=== PATIENT | male | born 1975 | race Caucasian/White ===

== ENCOUNTER 2017-08-24 12:00 | Inpatient (IN) | payer OTHER ==
[2017-08-24 14:39] VITALS: BMI 24.7
--- NOTE | 2017-08-24 18:21 | HP ---
CIWA Score - CIWA Score Nausea/Vomitin-Mild Nausea/No Vomiting Muscle Tremors: 5 Anxiety: 5 Agitation: 4-Moderately Restless Paroxysmal Sweats: 1-Minimal Palms Moist Orientation: 0-Oriented Tacttile Disturbances: 1-Very Mild Itch/Numbness Auditory Disturbances: 0-None Visual Disturbances: 0-None Headache: 2-Mild CIWA-Ar Total Score: 19 Admission ROS BHS - HPI Chief Complaint: withdrawal sx Allergies/Adverse Reactions: Allergies Allergy/AdvReac Type Severity Reaction Status Date / Time No Known Allergies Allergy Verified 08/24/17 17:02 History of Present Illness: 42 years old male with long history of xanax klonopin nicotine dependence has hiv hepatitis c and depression methadone maintenance 40 mg po daily is admitted to detox Exam Limitations: No Limitations - Ebola screening Have you traveled outside of the country in the last 21 days: No Have you had contact with anyone from an Ebola affected area: No Have you been sick,other than usual withdrawal symptoms: No Do you have a fever: No - Review of Systems Constitutional: Loss of Appetite, Changes in sleep, Unintentional Wgt. Loss, Unexplained wgt Loss EENT: reports: No Symptoms Reported Respiratory: reports: No Symptoms reported Cardiac: reports: No Symptoms Reported GI: reports: Nausea, Poor Appetite, Poor Fluid Intake, Abdominal cramping : reports: No Symptoms Reported Musculoskeletal: reports: Back Pain, Joint Pain, Muscle Pain, Neck Pain Integumentary: reports: Bruising (right rib = fell 08/21/17 treated at [facility] negative finding discharged same day), Lumps (right lateral eye brow) , Other Neuro: reports: Tremors Endocrine: reports: No Symptoms Reported Hematology: reports: No Symptoms Reported Psychiatric: reports: Judgement Intact, Orientated x3, Anxious, Depressed Other Systems: Reviewed and Negative Patient History - Patient Medical History Hx Anemia: No Hx Asthma: No Hx Chronic Obstructive Pulmonary Disease (COPD): No Hx Cancer: No Hx Cardiac Disorders: No Hx Congestive Heart Failure: No Hx Hypertension: No Hx Hypercholesterolemia: No Hx Pacemaker: No HX Cerebrovascular Accident: No Hx Seizures: No Hx Dementia: No Hx Diabetes: No Hx Gastrointestinal Disorders: No Hx Liver Disease: No Hx Genitourinary Disorders: No Hx Sexually Transmitted Disorders: No Hx Renal Disease (ESRD): No Hx Thyroid Disease: No Hx Human Immunodeficiency Virus (HIV): Yes (no treatment) Hx Hepatitis C: Yes (agrees to be treated) Hx Depression: Yes Hx Suicide Attempt: No Hx Bipolar Disorder: No Hx Schizophrenia: No - Patient Surgical History Past Surgical History: Yes Hx Neurologic Surgery: No Hx Cataract Extraction: No Hx Cardiac Surgery: No Hx Lung Surgery: No Hx Breast Surgery: No Hx Breast Biopsy: No Hx Abdominal Surgery: No Hx Appendectomy: No Hx Cholecystectomy: No Hx Genitourinary Surgery: No Hx Orthopedic Surgery: Yes (right 5th finger 1 years old) Anesthesia Reaction: No - PPD History Previous Implant?: Yes Documented Results: Negative w/o proof Implanted On Prior [facility] Admission?: No PPD to be Administered?: Yes - Smoking Cessation Smoking history: Current every day smoker Have you smoked in the past 12 months: Yes Aproximately how many cigarettes per day: 5 Cigars Per Day: 0 Hx Chewing Tobacco Use: No Initiated information on smoking cessation: Yes 'Breaking Loose' booklet given: 08/24/17 - Substance & Tx. History Hx Alcohol Use: No Hx Substance Use: Yes Substance Use Type: Marijuana, Tranquilizers Hx Substance Use Treatment: Yes (2012) - Substances Abused Alprazolam (Xanax) Route: Oral Frequency: Daily Amount used: 10mg Age of first use: 40 Date of Last Use: 08/23/17 Heroin Route: Inhalation Frequency: Daily Amount used: 10 bags Age of first use: 37 Date of Last Use: 08/23/17 Percocets Route: Oral Frequency: Daily Amount used: 10 mg Age of first use: 40 Date of Last Use: 08/23/17 Marijuana/Hashish Route: Smoking Frequency: 1-3 times last 30 days Amount used: joint Age of first use: 5 Date of Last Use: 08/23/17 Family Disease History - Family Disease History Family Disease History: [place]: Father (), Other: Father, Mother (no contact ) Admission Physical Exam BHS - Vital Signs Vital Signs: Vital Signs - 24 hr 08/24/17 14:35 Temperature 97.8 F Pulse Rate 59 L Respiratory 20 Rate Blood Pressure 114/66 - Physical General Appearance: Yes: Appropriately Dressed, Mild Distress, Thin, Tremorous, Irritable, Sweating, Anxious HEENTM: Yes: Hearing grossly Normal, Normal ENT Inspection, Normocephalic, Normal Voice Respiratory: Yes: Chest Non-Tender, Lungs Clear, Normal Breath Sounds, No Respiratory Distress, No Accessory Muscle Use Neck: Yes: Supple, Trachea in good position Breast: Yes: Breasts Symetrical Cardiology: Yes: Regular Rhythm, S1, S2, Bradycardia Abdominal: Yes: Normal Bowel Sounds, Non Tender, Soft Genitourinary: Yes: Within Normal Limits Back: Yes: Normal Inspection Musculoskeletal: Yes: full range of Motion, Gait Steady Extremities: Yes: Normal Inspection, Normal Range of Motion, Non-Tender, Tremors Neurological: Yes: Fully Oriented, Alert, Motor Strength 5/5, Normal Response, Depressed Affect Integumentary: Yes: Warm Lymphatic: Yes: Within Normal Limits - Diagnostic (1) Sedative, hypnotic or anxiolytic dependence with withdrawal, uncomplicated Current Visit: Yes Status: Acute (2) Methadone maintenance therapy patient Current Visit: Yes Status: Chronic Comment: 40 mg po daily verificaiton pending (3) Hepatitis C Current Visit: Yes Status: Chronic Qualifiers: Viral hepatitis chronicity: carrier Qualified Code(s): B18.2 - Chronic viral hepatitis C (4) HIV (human immunodeficiency virus infection) Current Visit: Yes Status: Chronic Comment: no treatment (5) Nicotine dependence Current Visit: Yes Status: Acute Qualifiers: Nicotine product type: cigarettes Substance use status: in withdrawal Qualified Code(s): F17.213 - Nicotine dependence, cigarettes, with withdrawal (6) Weight loss Current Visit: Yes Status: Acute (7) Status post fall Current Visit: Yes Status: Suspected Comment: sterile strip right lateral eyebrow fell 08/21/17 treated at [facility] negative finding discharged 08/21/17 with motrin and tylenal Cleared for Admission S - Detox or Rehab [facility] Level of Care: Medically Managed Detox Regimen/Protocol: Valium [facility] Breath Alcohol Content Breath Alcohol Content: 0 Urine Drug Screen - Results Drug Screen Negative: No Urine Drug Screen Results: THC-Marijuana, BZO-Benzodiazepines, MTD-Methadone
[2017-08-24] MEDS ORDERED: guaiFENesin/D-METHORPHAN HB 10 ML UNIT-DOSE CUPS PO PRN (18:30)
[2017-08-24] MEDS ORDERED: MAGNESIUM HYDROX 2400MG/30ML ORAL SUSPENSION 30 ML CUP PO PRN (18:30)
[2017-08-24] MEDS ORDERED: LOPERAMIDE HCL 2 MG CAPSULE PO PRN (18:30)
[2017-08-24] MEDS ORDERED: NICOTINE POLACRILEX 2 MG GUM BC PRN (18:30)
[2017-08-24] MEDS ORDERED: MENTHOL/PHENOL 1 EACH UD MM PRN (18:30)
[2017-08-24] MEDS ORDERED: P-EPHED 60MG/TRIPROLIDI 2.5MG TABLET PO PRN (18:30)
[2017-08-24] MEDS ORDERED: ACETAMINOPHEN 325 MG TABLET (FP) PO PRN (18:30)
[2017-08-24] MEDS ORDERED: MAGNESIUM CITRATE 300 ML BOTTLE PO PRN (18:30)
[2017-08-24] MEDS ORDERED: MAG HYDROX/AL HYDROX/SIMETH 30 ML UNIT-DOSE CUP PO PRN (18:30)
[2017-08-24] MEDS ORDERED: BACITRACIN 0.9 GM PACKET TP ONE (19:00)
[2017-08-24] MEDS ORDERED: diazePAM 5 MG TABLET PO ONE (19:00)
[2017-08-24] MEDS: IBUPROFEN 400 MG TABLET (FP) PO PRN (19:37)
[2017-08-24] MEDS: diazePAM 5 MG TABLET PO SCH (22:16)
[2017-08-24] MEDS: THIAMINE HCL 100 MG TABLET (FP) PO SCH (22:16)
[2017-08-24] MEDS ORDERED: hydrOXYzine PAMOATE 50 MG CAPSULE (FP) PO ONE (22:26)
[2017-08-24 23:46] LABS: URINE APPEARANCE CLEAR; URINE BILIRUBIN NEGATIVE (NEGATIVE); URINE BLOOD NEGATIVE (NEGATIVE); URINE COLOR YELLOW; URINE GLUCOSE (UA) NEGATIVE (NEGATIVE); URINE KETONE NEGATIVE (NEGATIVE); URINE LEUK ESTERASE NEGATIVE (NEGATIVE); URINE NITRITE NEGATIVE (NEGATIVE); URINE PROTEIN NEGATIVE (NEGATIVE); URINE UROBILINOGEN NEGATIVE mg/dL (0.2-1.0)
[2017-08-25] MEDS: diazePAM 5 MG TABLET PO SCH ×3 (05:28→22:23)
[2017-08-25 09:50] LABS: HEMATOCRIT 45.2 % (35.4-49); MCH 32.2 pg (25.7-33.7); MCHC 33.1 g/dl (32.0-35.9); MEAN CELL VOLUME 97.2 fl (80-96); MEAN PLT VOLUME 8.6 fl (7.5-11.1); PLATELET COUNT 111 K/MM3 (134-434); RBC 4.65 M/mm3 (4.00-5.60); RDW 12.9 % (11.9-15.9)
[2017-08-25 10:07] LABS: ANION GAP 6 (8-16); BILIRUBIN,TOTAL 0.3 mg/dL (0.2-1.0); BLOOD UREA NITROGEN 14 mg/dL (7-18); CALCIUM 7.9 mg/dL (8.5-10.1); CHLORIDE 106 mmol/L (98-107); CO2 29 mmol/L (21-32); CREATININE 0.7 mg/dL (0.7-1.3); GLUCOSE,RANDOM 91 mg/dL (74-106); POTASSIUM 3.9 mmol/L (3.5-5.1); SGOT/AST 33 U/L (15-37); SGPT/ALT 56 U/L (12-78); SODIUM 141 mmol/L (136-145); TOT PROT 5.9 g/dl (6.4-8.2)
[2017-08-25 10:08] LABS: ALK PHOS 78 U/L (45-117)
[2017-08-25] MEDS: PRENATAL VITAMINS W/ FOLIC ACID TABLET (FP) PO SCH (10:33)
[2017-08-25] MEDS: diazePAM 5 MG TABLET PO PRN ×2 (10:34→17:33)
[2017-08-25] MEDS: NICOTINE 14 MG/24 HOURS TOPICAL PATCH TD SCH (10:34)
[2017-08-25] MEDS ORDERED: METHADONE HCL 10 MG TABLET PO SCH (11:45)
--- NOTE | 2017-08-25 11:47 | PN ---
[facility] CIWA - CIWA Score Nausea/Vomitin-No Nausea/No Vomiting Muscle Tremors: 3 Anxiety: 4-Mod. Anxious/Guarded Agitation: 3 Paroxysmal Sweats: 3 Orientation: 0-Oriented Tacttile Disturbances: 2-Mild Itch/Numbness/Burn Auditory Disturbances: 0-None Visual Disturbances: 3-Moderate Sensitivity Headache: 0-None Present CIWA-Ar Total Score: 18 BHS Progress Note (SOAP) Subjective: Body Aches, Chills, Sweating, Interrupted Sleep, Diarrhea, Tremors. Objective: PT. A & O X 3, OBSERVED AMBULATING ON UNIT. NO ACUTE DISTRESS. 08/25/17 11:44 Vital Signs Temperature 97.0 F L 08/25/17 09:57 Pulse Rate 61 08/25/17 09:57 Respiratory Rate 18 08/25/17 09:57 Blood Pressure 101/66 08/25/17 09:57 O2 Sat by Pulse Oximetry (%) Laboratory Tests 08/24/17 08/25/17 08/25/17 23:30 07:00 07:00 WBC 6.0 RBC 4.65 Hgb 15.0 Hct 45.2 MCV 97.2 H MCH 32.2 MCHC 33.1 RDW 12.9 Plt Count 111 L MPV 8.6 Sodium 141 Potassium 3.9 Chloride 106 Carbon Dioxide 29 Anion Gap 6 L BUN 14 Creatinine 0.7 Creat Clearance w eGFR > 60 Random Glucose 91 Calcium 7.9 L Total Bilirubin 0.3 AST 33 ALT 56 Alkaline Phosphatase 78 Total Protein 5.9 L Albumin 3.0 L Urine Color Yellow Urine Appearance Clear Urine pH 7.0 Ur Specific [place] 1.010 Urine Protein Negative Urine Glucose (UA) Negative Urine Ketones Negative Urine Blood Negative Urine Nitrite Negative Urine Bilirubin Negative Urine Urobilinogen Negative Ur Leukocyte Esterase Negative RPR Titer 08/25/17 07:00 WBC RBC Hgb Hct MCV MCH MCHC RDW Plt Count MPV Sodium Potassium Chloride Carbon Dioxide Anion Gap BUN Creatinine Creat Clearance w eGFR Random Glucose Calcium Total Bilirubin AST ALT Alkaline Phosphatase Total Protein Albumin Urine Color Urine Appearance Urine pH Ur Specific [place] Urine Protein Urine Glucose (UA) Urine Ketones Urine Blood Urine Nitrite Urine Bilirubin Urine Urobilinogen Ur Leukocyte Esterase RPR Titer Nonreactive LABS NOTED. Assessment: 08/25/17 11:45 WITHDRAWAL SYMPTOMS. Plan: CONTINUE DETOX. PRN IMMODIUM FOR DIARRHEA. INCREASE DAILY PO FLUID INTAKE.
[2017-08-25] MEDS ORDERED: METHADONE HCL 10 MG TABLET ONE (12:36)
[2017-08-25] MEDS ORDERED: METHADONE HCL 40 MG DISPERSABLE TABLET ONE (12:37)
[2017-08-25] MEDS: METHADONE 40 MG, METHADONE 10 MG PO SCH (12:50)
[2017-08-25] MEDS: BACITRACIN 0.9 GM PACKET TP SCH ×2 (12:50→22:23)
--- NOTE | 2017-08-25 15:16 | EKG ---
Test Reason : Blood Pressure : / mmHG Vent. Rate : 055 BPM Atrial Rate : 055 BPM P-R Int : 160 ms QRS Dur : 088 ms QT Int : 452 ms P-R-T Axes : 046 002 012 degrees QTc Int : 432 ms SINUS BRADYCARDIA OTHERWISE NORMAL ECG NO PREVIOUS ECGS AVAILABLE Confirmed by MD KATERIN, MALIK ([id number]) on 08/25/2017 3:15:56 PM Referred By: Confirmed By:MALIK CONKLIN MD
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
[2017-08-25] MEDS ORDERED: hydrOXYzine PAMOATE 50 MG CAPSULE (FP) PO PRN (16:07)
[2017-08-25] MEDS: THIAMINE HCL 100 MG TABLET (FP) PO SCH (22:23)
[2017-08-25] MEDS: ZOLPIDEM TARTRATE 10 MG TABLET (PARK CARE ONLY) PO PRN (22:23)
[2017-08-26] MEDS ORDERED: METHADONE HCL 10 MG TABLET ONE (04:03)
[2017-08-26] MEDS ORDERED: METHADONE HCL 40 MG DISPERSABLE TABLET ONE (04:03)
[2017-08-26] MEDS: METHADONE 40 MG, METHADONE 10 MG PO SCH (05:25)
[2017-08-26] MEDS: NICOTINE 14 MG/24 HOURS TOPICAL PATCH TD SCH (10:26)
[2017-08-26] MEDS: diazePAM 5 MG TABLET PO SCH ×2 (10:26→22:40)
[2017-08-26] MEDS: BACITRACIN 0.9 GM PACKET TP SCH ×2 (10:26→22:38)
[2017-08-26] MEDS: PRENATAL VITAMINS W/ FOLIC ACID TABLET (FP) PO SCH (10:26)
[2017-08-26] MEDS: TOLNAFTATE 1% CREAM 15 GM TUBE TP SCH ×2 (13:40→22:38)
--- NOTE | 2017-08-26 17:03 | PN ---
S CIWA - CIWA Score Nausea/Vomitin-No Nausea/No Vomiting Muscle Tremors: 3 Anxiety: 4-Mod. Anxious/Guarded Agitation: 3 Paroxysmal Sweats: 3 Orientation: 0-Oriented Tacttile Disturbances: 0-None Auditory Disturbances: 1-Very Mild Visual Disturbances: 2-Mild Sensitivity Headache: 0-None Present CIWA-Ar Total Score: 16 BHS Progress Note (SOAP) Subjective: Sweating, Tremors, Anxious. Objective: PT. A & O X 3, OBSERVED AMBULATING ON UNIT. NO ACUTE DISTRESS. 08/26/17 17:02 Vital Signs Temperature 97.5 F L 08/26/17 13:20 Pulse Rate 56 L 08/26/17 13:20 Respiratory Rate 18 08/26/17 13:20 Blood Pressure 104/69 08/26/17 13:20 O2 Sat by Pulse Oximetry (%) Laboratory Tests 08/24/17 08/25/17 08/25/17 23:30 07:00 07:00 WBC 6.0 RBC 4.65 Hgb 15.0 Hct 45.2 MCV 97.2 H MCH 32.2 MCHC 33.1 RDW 12.9 Plt Count 111 L MPV 8.6 Sodium 141 Potassium 3.9 Chloride 106 Carbon Dioxide 29 Anion Gap 6 L BUN 14 Creatinine 0.7 Creat Clearance w eGFR > 60 Random Glucose 91 Calcium 7.9 L Total Bilirubin 0.3 AST 33 ALT 56 Alkaline Phosphatase 78 Total Protein 5.9 L Albumin 3.0 L Urine Color Yellow Urine Appearance Clear Urine pH 7.0 Ur Specific [place] 1.010 Urine Protein Negative Urine Glucose (UA) Negative Urine Ketones Negative Urine Blood Negative Urine Nitrite Negative Urine Bilirubin Negative Urine Urobilinogen Negative Ur Leukocyte Esterase Negative RPR Titer 08/25/17 07:00 WBC RBC Hgb Hct MCV MCH MCHC RDW Plt Count MPV Sodium Potassium Chloride Carbon Dioxide Anion Gap BUN Creatinine Creat Clearance w eGFR Random Glucose Calcium Total Bilirubin AST ALT Alkaline Phosphatase Total Protein Albumin Urine Color Urine Appearance Urine pH Ur Specific [place] Urine Protein Urine Glucose (UA) Urine Ketones Urine Blood Urine Nitrite Urine Bilirubin Urine Urobilinogen Ur Leukocyte Esterase RPR Titer Nonreactive LABS NOTED. Assessment: 08/26/17 17:02 WITHDRAWAL SYMPTOMS. Plan: CONTINUE DETOX.
[2017-08-26] MEDS: THIAMINE HCL 100 MG TABLET (FP) PO SCH (22:38)
[2017-08-26] MEDS: ZOLPIDEM TARTRATE 10 MG TABLET (PARK CARE ONLY) PO PRN (22:38)
[2017-08-27] MEDS ORDERED: METHADONE HCL 40 MG DISPERSABLE TABLET ONE (04:40)
[2017-08-27] MEDS ORDERED: METHADONE HCL 10 MG TABLET ONE (04:40)
[2017-08-27] MEDS: METHADONE 40 MG, METHADONE 10 MG PO SCH (05:46)
[2017-08-27] MEDS: diazePAM 5 MG TABLET PO PRN (05:46)
[2017-08-27] MEDS: PRENATAL VITAMINS W/ FOLIC ACID TABLET (FP) PO SCH (10:13)
[2017-08-27] MEDS: diazePAM 5 MG TABLET PO SCH ×2 (10:13→22:31)
[2017-08-27] MEDS: BACITRACIN 0.9 GM PACKET TP SCH ×2 (10:13→22:31)
[2017-08-27] MEDS: NICOTINE 14 MG/24 HOURS TOPICAL PATCH TD SCH (10:13)
[2017-08-27] MEDS: TOLNAFTATE 1% CREAM 15 GM TUBE TP SCH ×2 (10:15→22:33)
[2017-08-27] MEDS ORDERED: ALBUTEROL SO4 0.083% IH SOL 2.5 MG/3 ML VIAL.NEB. NEB PRN (10:55)
--- NOTE | 2017-08-27 16:40 | PN ---
BHS Progress Note (SOAP) Subjective: Interrupted sleep, chills, tremor, back pain Objective: 08/27/17 16:40 Last Vital Signs Temp Pulse Resp BP Pulse Ox 98.1 F 68 18 105/66 08/27/17 13:29 08/27/17 13:29 08/27/17 13:29 08/27/17 13:29 Laboratory Tests 08/24/17 08/25/17 08/25/17 23:30 07:00 07:00 WBC 6.0 RBC 4.65 Hgb 15.0 Hct 45.2 MCV 97.2 H MCH 32.2 MCHC 33.1 RDW 12.9 Plt Count 111 L MPV 8.6 Sodium 141 Potassium 3.9 Chloride 106 Carbon Dioxide 29 Anion Gap 6 L BUN 14 Creatinine 0.7 Creat Clearance w eGFR > 60 Random Glucose 91 Calcium 7.9 L Total Bilirubin 0.3 AST 33 ALT 56 Alkaline Phosphatase 78 Total Protein 5.9 L Albumin 3.0 L Urine Color Yellow Urine Appearance Clear Urine pH 7.0 Ur Specific [place] 1.010 Urine Protein Negative Urine Glucose (UA) Negative Urine Ketones Negative Urine Blood Negative Urine Nitrite Negative Urine Bilirubin Negative Urine Urobilinogen Negative Ur Leukocyte Esterase Negative RPR Titer 08/25/17 07:00 WBC RBC Hgb Hct MCV MCH MCHC RDW Plt Count MPV Sodium Potassium Chloride Carbon Dioxide Anion Gap BUN Creatinine Creat Clearance w eGFR Random Glucose Calcium Total Bilirubin AST ALT Alkaline Phosphatase Total Protein Albumin Urine Color Urine Appearance Urine pH Ur Specific [place] Urine Protein Urine Glucose (UA) Urine Ketones Urine Blood Urine Nitrite Urine Bilirubin Urine Urobilinogen Ur Leukocyte Esterase RPR Titer Nonreactive Labs noted Assessment: 08/27/17 16:40 Withdrawal symptoms Plan: Continue detox
[2017-08-27] MEDS: IBUPROFEN 400 MG TABLET (FP) PO PRN (19:58)
[2017-08-27] MEDS: THIAMINE HCL 100 MG TABLET (FP) PO SCH (22:31)
[2017-08-27] MEDS: ZOLPIDEM TARTRATE 10 MG TABLET (PARK CARE ONLY) PO PRN (22:33)
[2017-08-28] MEDS ORDERED: METHADONE HCL 10 MG TABLET ONE (03:39)
[2017-08-28] MEDS ORDERED: METHADONE HCL 40 MG DISPERSABLE TABLET ONE (03:39)
[2017-08-28] MEDS: METHADONE 40 MG, METHADONE 10 MG PO SCH (05:57)
[2017-08-28 09:48] VITALS: BP 94/71; PULSE 58; TEMP 98.8
[2017-08-28] MEDS ORDERED: diazePAM 5 MG TABLET PO SCH (10:00)
[2017-08-28] MEDS: TOLNAFTATE 1% CREAM 15 GM TUBE TP SCH (10:32)
[2017-08-28] MEDS: PRENATAL VITAMINS W/ FOLIC ACID TABLET (FP) PO SCH (10:32)
[2017-08-28] MEDS: NICOTINE 14 MG/24 HOURS TOPICAL PATCH TD SCH (10:32)
[2017-08-28] MEDS: BACITRACIN 0.9 GM PACKET TP SCH (10:32)
--- NOTE | 2017-08-28 12:13 | PN ---
BHS Progress Note (SOAP) Subjective: LAST VALIUM TODAY. ALERT O X 3. SLIGHT ANXIETY. Objective: 08/28/17 12:11 Vital Signs Temperature 98.8 F 08/28/17 09:47 Pulse Rate 58 L 08/28/17 09:47 Respiratory Rate 18 08/28/17 09:47 Blood Pressure 94/71 08/28/17 09:47 O2 Sat by Pulse Oximetry (%) Laboratory Tests 08/24/17 08/25/17 08/25/17 23:30 07:00 07:00 WBC 6.0 RBC 4.65 Hgb 15.0 Hct 45.2 MCV 97.2 H MCH 32.2 MCHC 33.1 RDW 12.9 Plt Count 111 L MPV 8.6 Sodium 141 Potassium 3.9 Chloride 106 Carbon Dioxide 29 Anion Gap 6 L BUN 14 Creatinine 0.7 Creat Clearance w eGFR > 60 Random Glucose 91 Calcium 7.9 L Total Bilirubin 0.3 AST 33 ALT 56 Alkaline Phosphatase 78 Total Protein 5.9 L Albumin 3.0 L Urine Color Yellow Urine Appearance Clear Urine pH 7.0 Ur Specific [place] 1.010 Urine Protein Negative Urine Glucose (UA) Negative Urine Ketones Negative Urine Blood Negative Urine Nitrite Negative Urine Bilirubin Negative Urine Urobilinogen Negative Ur Leukocyte Esterase Negative RPR Titer 08/25/17 07:00 WBC RBC Hgb Hct MCV MCH MCHC RDW Plt Count MPV Sodium Potassium Chloride Carbon Dioxide Anion Gap BUN Creatinine Creat Clearance w eGFR Random Glucose Calcium Total Bilirubin AST ALT Alkaline Phosphatase Total Protein Albumin Urine Color Urine Appearance Urine pH Ur Specific [place] Urine Protein Urine Glucose (UA) Urine Ketones Urine Blood Urine Nitrite Urine Bilirubin Urine Urobilinogen Ur Leukocyte Esterase RPR Titer Nonreactive Assessment: 08/28/17 12:12 WITHDRAWAL SX Plan: CONTINUE DETOX INCREASE PO FLUIDS.
== END 2017-08-28 13:40 | disposition other institution (70) | DRG 773 ==
LOC: YASAS 12:00 → Y3N 17:41
PROVIDERS: ADMIT Internal Medicine; ATTEND Internal Medicine
PROC: HZ2ZZZZ Detoxification Services for Substance Abuse Treatment (ICD-10-PCS; principal; 2017-08-24)
DX: F13.230 Sedative, hypnotic or anxiolytic dependence with withdrawal, uncomplicated (principal); F11.20 Opioid dependence, uncomplicated; F12.20 Cannabis dependence, uncomplicated; F17.213 Nicotine dependence, cigarettes, with withdrawal; Z21 Asymptomatic human immunodeficiency virus [HIV] infection status; B18.2 Chronic viral hepatitis C; G47.00 Insomnia, unspecified; Z87.898 Personal history of other specified conditions
CPT/HCPCS: 36415; 80053; 81003; 85027; 86593; 93005; 93010

== ENCOUNTER 2017-08-28 14:20 | Inpatient (IN) | payer OTHER ==
[2017-08-28 15:15] VITALS: BMI 26.3
[2017-08-28] MEDS ORDERED: MAGNESIUM CITRATE 300 ML BOTTLE PO PRN (15:48)
[2017-08-28] MEDS ORDERED: MAGNESIUM HYDROX 2400MG/30ML ORAL SUSPENSION 30 ML CUP PO PRN (15:48)
[2017-08-28] MEDS ORDERED: P-EPHED 60MG/TRIPROLIDI 2.5MG TABLET PO PRN (15:48)
[2017-08-28] MEDS ORDERED: guaiFENesin/D-METHORPHAN HB 10 ML UNIT-DOSE CUPS PO PRN (15:48)
[2017-08-28] MEDS ORDERED: IBUPROFEN 400 MG TABLET (FP) PO PRN (15:48)
[2017-08-28] MEDS ORDERED: MAG HYDROX/AL HYDROX/SIMETH 30 ML UNIT-DOSE CUP PO PRN (15:48)
--- NOTE | 2017-08-28 16:25 | HP ---
[facility] Rehab Assess/Revision - Admission History Admitted to Rehab from: [facility] Date of Admission to Rehab: 08/28/17 - Vital signs Vital Signs: Vital Signs Period Temp Pulse Resp BP Sys/Arreola Pulse Ox Last 24 Hr 99.4 F 64 20 105/65 - Findings Detox History & Physical reviewed: Yes Concur with findings: Yes Comments/Additional Findings: transferred from detox to rehab admission as per protocol Inpatient Rehab Admission - Initial Determination Are CD services needed?: Yes Free of communicable disease: Yes Not in need of hospitalization: Yes - Rehab Admission Criteria Previous failed treatment: Yes Poor recovery environment: Yes Comorbidities: Yes Lacks judgement: No Patient is meeting Inpatient Rehab admission criteria:: Yes
[2017-08-28] MEDS ORDERED: ALBUTEROL SO4 18 GM HFA INHALER IH PRN (16:47)
[2017-08-28] MEDS: NICOTINE 14 MG/24 HOURS TOPICAL PATCH TD SCH (17:10)
[2017-08-28] MEDS: BACITRACIN 0.9 GM PACKET TP SCH (21:38)
[2017-08-28] MEDS: THIAMINE HCL 100 MG TABLET (FP) PO SCH (21:38)
[2017-08-28] MEDS: hydrOXYzine PAMOATE 50 MG CAPSULE (FP) PO PRN (21:39)
[2017-08-29] MEDS ORDERED: METHADONE HCL 10 MG TABLET ONE (04:18)
[2017-08-29] MEDS ORDERED: METHADONE HCL 40 MG DISPERSABLE TABLET ONE (04:18)
[2017-08-29] MEDS ORDERED: METHADONE HCL 10 MG TABLET PO SCH (06:00)
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
[2017-08-29] MEDS: METHADONE 40 MG, METHADONE 10 MG PO SCH (06:27)
[2017-08-29] MEDS ORDERED: BACITRACIN 15 GM TUBE TOPICAL OINTMENT TP SCH (10:00)
[2017-08-29] MEDS: PRENATAL VITAMINS W/ FOLIC ACID TABLET (FP) PO SCH (10:23)
[2017-08-29] MEDS: NICOTINE 14 MG/24 HOURS TOPICAL PATCH TD SCH (10:24)
[2017-08-29] MEDS: BACITRACIN 0.9 GM PACKET TP SCH ×2 (10:24→21:21)
[2017-08-29] MEDS: THIAMINE HCL 100 MG TABLET (FP) PO SCH (21:21)
[2017-08-29] MEDS: QUEtiapine FUMARATE 100 MG TABLET (FP) PO SCH (21:21)
[2017-08-30] MEDS ORDERED: METHADONE HCL 40 MG DISPERSABLE TABLET ONE (04:14)
[2017-08-30] MEDS ORDERED: METHADONE HCL 10 MG TABLET ONE (04:14)
[2017-08-30] MEDS: METHADONE 40 MG, METHADONE 10 MG PO SCH (06:27)
[2017-08-30] MEDS: hydrOXYzine PAMOATE 50 MG CAPSULE (FP) PO PRN ×2 (06:29→21:22)
[2017-08-30] MEDS: ACETAMINOPHEN 325 MG TABLET (FP) PO PRN (06:29)
[2017-08-30] MEDS: LOPERAMIDE HCL 2 MG CAPSULE PO PRN ×2 (06:58→23:31)
[2017-08-30] MEDS: NICOTINE 14 MG/24 HOURS TOPICAL PATCH TD SCH (10:21)
[2017-08-30] MEDS: BACITRACIN 0.9 GM PACKET TP SCH ×2 (10:21→21:22)
[2017-08-30] MEDS: PRENATAL VITAMINS W/ FOLIC ACID TABLET (FP) PO SCH (10:21)
[2017-08-30] MEDS: QUEtiapine FUMARATE 100 MG TABLET (FP) PO SCH (21:22)
[2017-08-30] MEDS: THIAMINE HCL 100 MG TABLET (FP) PO SCH (21:22)
[2017-08-31] MEDS ORDERED: METHADONE HCL 40 MG DISPERSABLE TABLET ONE (04:17)
[2017-08-31] MEDS ORDERED: METHADONE HCL 10 MG TABLET ONE (04:17)
[2017-08-31] MEDS: METHADONE 40 MG, METHADONE 10 MG PO SCH (05:55)
[2017-08-31] MEDS: PRENATAL VITAMINS W/ FOLIC ACID TABLET (FP) PO SCH (09:41)
[2017-08-31] MEDS: BACITRACIN 0.9 GM PACKET TP SCH ×2 (09:41→21:22)
[2017-08-31] MEDS: NICOTINE 14 MG/24 HOURS TOPICAL PATCH TD SCH (09:41)
[2017-08-31] MEDS ORDERED: METHADONE HCL 40 MG DISPERSABLE TABLET PO SCH (12:26)
--- NOTE | 2017-08-31 12:27 | PN ---
S Progress Note Note: requests dose decrease, and hiv vl will order pt to seek hiv housing assistance asymptomatic - no labs since 2 y ago
[2017-08-31] MEDS: THIAMINE HCL 100 MG TABLET (FP) PO SCH (21:22)
[2017-08-31] MEDS: QUEtiapine FUMARATE 100 MG TABLET (FP) PO SCH (21:22)
[2017-08-31] MEDS: hydrOXYzine PAMOATE 50 MG CAPSULE (FP) PO PRN (21:24)
[2017-09-01] MEDS ORDERED: METHADONE HCL 5 MG TABLET ONE (05:33)
[2017-09-01] MEDS ORDERED: METHADONE HCL 40 MG DISPERSABLE TABLET ONE (05:33)
[2017-09-01] MEDS: METHADONE 40 MG, METHADONE 5 MG PO SCH (05:53)
[2017-09-01] MEDS: PRENATAL VITAMINS W/ FOLIC ACID TABLET (FP) PO SCH (10:14)
[2017-09-01] MEDS: NICOTINE 14 MG/24 HOURS TOPICAL PATCH TD SCH (10:14)
[2017-09-01] MEDS: BACITRACIN 0.9 GM PACKET TP SCH ×2 (10:14→21:41)
[2017-09-01] MEDS: NICOTINE POLACRILEX 2 MG GUM BUC PRN (10:15)
[2017-09-01] MEDS: QUEtiapine FUMARATE 100 MG TABLET (FP) PO SCH (21:41)
[2017-09-01] MEDS: THIAMINE HCL 100 MG TABLET (FP) PO SCH (21:41)
[2017-09-01] MEDS: hydrOXYzine PAMOATE 50 MG CAPSULE (FP) PO PRN (21:41)
[2017-09-02] MEDS ORDERED: METHADONE HCL 5 MG TABLET ONE (03:00)
[2017-09-02] MEDS ORDERED: METHADONE HCL 40 MG DISPERSABLE TABLET ONE (03:00)
[2017-09-02] MEDS: METHADONE 40 MG, METHADONE 5 MG PO SCH (06:32)
[2017-09-02] MEDS: NICOTINE 14 MG/24 HOURS TOPICAL PATCH TD SCH (09:45)
[2017-09-02] MEDS: NICOTINE POLACRILEX 2 MG GUM BUC PRN (09:45)
[2017-09-02] MEDS: BACITRACIN 0.9 GM PACKET TP SCH ×2 (09:45→21:23)
[2017-09-02] MEDS: PRENATAL VITAMINS W/ FOLIC ACID TABLET (FP) PO SCH (09:45)
[2017-09-02] MEDS: QUEtiapine FUMARATE 100 MG TABLET (FP) PO SCH (21:23)
[2017-09-02] MEDS: THIAMINE HCL 100 MG TABLET (FP) PO SCH (21:23)
[2017-09-02] MEDS: hydrOXYzine PAMOATE 50 MG CAPSULE (FP) PO PRN (21:24)
[2017-09-03] MEDS ORDERED: METHADONE HCL 5 MG TABLET ONE (02:50)
[2017-09-03] MEDS ORDERED: METHADONE HCL 40 MG DISPERSABLE TABLET ONE (02:50)
[2017-09-03] MEDS: METHADONE 40 MG, METHADONE 5 MG PO SCH (06:28)
[2017-09-03] MEDS: BACITRACIN 0.9 GM PACKET TP SCH ×2 (09:46→22:25)
[2017-09-03] MEDS: NICOTINE 14 MG/24 HOURS TOPICAL PATCH TD SCH (09:46)
[2017-09-03] MEDS: PRENATAL VITAMINS W/ FOLIC ACID TABLET (FP) PO SCH (09:46)
[2017-09-03] MEDS: QUEtiapine FUMARATE 100 MG TABLET (FP) PO SCH (21:53)
[2017-09-03] MEDS: THIAMINE HCL 100 MG TABLET (FP) PO SCH (21:53)
[2017-09-03] MEDS: hydrOXYzine PAMOATE 50 MG CAPSULE (FP) PO PRN (21:55)
[2017-09-04] MEDS ORDERED: METHADONE HCL 40 MG DISPERSABLE TABLET ONE (03:52)
[2017-09-04] MEDS ORDERED: METHADONE HCL 5 MG TABLET ONE (03:52)
[2017-09-04] MEDS: METHADONE 40 MG, METHADONE 5 MG PO SCH (05:48)
[2017-09-04] MEDS: NICOTINE 14 MG/24 HOURS TOPICAL PATCH TD SCH (10:13)
[2017-09-04] MEDS: PRENATAL VITAMINS W/ FOLIC ACID TABLET (FP) PO SCH (10:14)
[2017-09-04] MEDS: BACITRACIN 0.9 GM PACKET TP SCH ×2 (10:14→21:33)
--- NOTE | 2017-09-04 13:58 | PN ---
Psychiatric Progress Note Vital Signs: Vital Signs Period Temp Pulse Resp BP Sys/Arreola Pulse Ox Last 24 Hr 97.2 F 57 16-18 97/61 Date of Session: 09/04/17 Chief Complaint:: Anxiety HPI: Patient addressing Opoid, Sedative, Cannabis comorbid with Opoid Dependence on Agonist Therapy, Nicotine Dependence, Substance-induced Mood Disorder and Substance-induced Sleep Disorder ROS: HIV, Hep C Current Medications: Active Medications Generic Name Dose Route Start Last Admin Trade Name Freq PRN Reason Stop Dose Admin Acetaminophen 650 mg 08/28/17 15:48 08/30/17 06:29 Tylenol - PO 650 mg Q4H PRN Administration FEVER Al Hydroxide/Mg Hydroxide 30 ml 08/28/17 15:48 Mylanta Oral Suspension - PO Q6H PRN DYSPEPSIA Albuterol Sulfate 2 puff 08/28/17 16:47 Ventolin Hfa Inhaler - IH Q4H PRN ASTHMA Bacitracin 0.9 gm 08/28/17 22:00 09/04/17 10:14 Bacitracin - TP 0.9 gm BID OLIVA Administration Eucalyptus/Menthol/Phenol/Sorbitol 1 each 08/28/17 15:48 Cepastat Lozenge - MM Q4H PRN SORE THROAT Guaifenesin 10 ml 08/28/17 15:48 Robitussin Dm - PO Q6H PRN COUGH Hydroxyzine Pamoate 50 mg 08/28/17 15:48 09/03/17 21:55 Vistaril - PO 50 mg Q4H PRN Administration AGITATION Ibuprofen 400 mg 08/28/17 15:48 Motrin - PO Q6H PRN Pain Level 4-6 Loperamide HCl 4 mg 08/28/17 15:48 08/30/17 23:31 Imodium - PO 4 mg Q6H PRN Administration DIARRHEA Magnesium Citrate 300 ml 08/28/17 15:48 Citroma - PO Q48H PRN CONSTIPATION Magnesium Hydroxide 30 ml 08/28/17 15:48 Milk Of Magnesia - PO DAILY PRN CONSTIPATION Methadone HCl 40 mg/ Methadone 45 mg 09/01/17 06:00 09/04/17 05:48 HCl 5 mg PO 09/07/17 05:59 45 mg DAILY@0600 OLIVA Administration Nicotine 14 mg 08/28/17 16:00 09/04/17 10:13 Nicoderm Patch - TD Not Given DAILY OLIVA Nicotine Polacrilex 2 mg 08/28/17 15:48 09/02/17 09:45 Nicorette Gum - BUC 2 mg Q2H PRN Administration NICOTINE REPLACEMENT RX Multivit/Folic Acid/Iron 1 tab 08/29/17 10:00 09/04/17 10:14 Vitamins (Sjr) - PO 1 tab DAILY OLIVA Administration Pseudoephedrine/Triprolidine 1 combo 08/28/17 15:48 Actifed - PO TID PRN NASAL CONGESTION Quetiapine Fumarate 100 mg 08/29/17 22:00 09/03/17 21:53 Seroquel - PO 100 mg HS OLIVA Administration Thiamine HCl 100 mg 08/28/17 22:00 09/03/17 21:53 Vitamin B1 - PO 100 mg HS OLIVA Administration Medication(s) Change(s): Start Gabentin 200 mg po TID Current Side Effect: No Lab tests ordered: Yes Lab tests reviewed: Yes Provider note:: Patient reports that he has been feeling anxious and having hard time sleeping despite taking Seroquel 100 mg po HS. He also talked about walking up after having bad dreams. Requests to be ordered Gabapentin saying that he used to take up to 800 mg/day of Gabapetin and it was very effective Total face to face time:: 25 Mental Status Exam - Mental Status Exam Alert and Oriented to: Time, Place, Person Cognitive Function: Fair Patient Appearance: Well Groomed Mood: Anxious Affect: Appropriate Patient Behavior: Cooperative Speech Pattern: Clear Voice Loudness: Normal Thought Process: Intact, Goal Oriented Thought Disorder: Not Present Hallucinations: Denies Suicidal Ideation: Denies Homicidal Ideation: Denies Insight/Judgement: Fair Sleep: Fair Appetite: Good Muscle strength/Tone: Normal Gait/Station: Normal Psychiatric Treatment Plan - Problem List (1) Opioid dependence Current Visit: Yes (2) Sedative hypnotic or anxiolytic dependence Current Visit: Yes (3) Cannabis dependence Current Visit: Yes (4) Opioid dependence on agonist therapy Current Visit: Yes (5) Nicotine dependence Current Visit: Yes (6) Substance induced mood disorder Current Visit: Yes (7) Substance-induced sleep disorder Current Visit: Yes (8) HIV (human immunodeficiency virus infection) Current Visit: No Comment: no treatment (9) Hepatitis C Current Visit: No Qualifiers: Viral hepatitis chronicity: carrier Qualified Code(s): B18.2 - Chronic viral hepatitis C Initial treatment plan: 1) Start Gabapentin 200 mg po TID. 3) Monitor progress
[2017-09-04] MEDS: GABAPENTIN 100 MG CAPSULE (FP) PO SCH ×2 (14:48→21:33)
--- NOTE | 2017-09-04 14:59 | PN ---
S Progress Note (SOAP) Subjective: would like to continue methacone detox, agrees to decrease dose by 5mg ( 10percent) Objective: 09/04/17 14:58 Vital Signs - 24 hr 09/04/17 09/04/17 09/04/17 00:30 03:30 07:06 Temperature 97.2 F L Pulse Rate 57 L Respiratory 18 18 16 Rate Blood Pressure 97/61 labs reveiwed, no signs of withdrawal Assessment: 09/04/17 14:58 will decrease dose to 40mg daily. follow up next week will raise methadone if craving
[2017-09-04] MEDS: THIAMINE HCL 100 MG TABLET (FP) PO SCH (21:33)
[2017-09-04] MEDS: QUEtiapine FUMARATE 100 MG TABLET (FP) PO SCH (21:34)
[2017-09-05] MEDS: GABAPENTIN 100 MG CAPSULE (FP) PO SCH ×3 (06:34→21:18)
[2017-09-05] MEDS: METHADONE HCL 40 MG DISPERSABLE TABLET PO SCH (06:34)
[2017-09-05] MEDS: NICOTINE 14 MG/24 HOURS TOPICAL PATCH TD SCH (09:56)
[2017-09-05] MEDS: BACITRACIN 0.9 GM PACKET TP SCH ×2 (09:56→21:18)
[2017-09-05] MEDS: NICOTINE POLACRILEX 2 MG GUM BUC PRN (09:56)
[2017-09-05] MEDS: PRENATAL VITAMINS W/ FOLIC ACID TABLET (FP) PO SCH (09:56)
[2017-09-05] MEDS: THIAMINE HCL 100 MG TABLET (FP) PO SCH (21:18)
[2017-09-05] MEDS: hydrOXYzine PAMOATE 50 MG CAPSULE (FP) PO PRN (21:18)
[2017-09-05] MEDS: QUEtiapine FUMARATE 100 MG TABLET (FP) PO SCH (21:18)
[2017-09-06] MEDS: GABAPENTIN 100 MG CAPSULE (FP) PO SCH ×3 (06:15→21:33)
[2017-09-06] MEDS: METHADONE HCL 40 MG DISPERSABLE TABLET PO SCH (06:15)
[2017-09-06] MEDS: NICOTINE 14 MG/24 HOURS TOPICAL PATCH TD SCH (09:42)
[2017-09-06] MEDS: PRENATAL VITAMINS W/ FOLIC ACID TABLET (FP) PO SCH (09:42)
[2017-09-06] MEDS: BACITRACIN 0.9 GM PACKET TP SCH ×2 (09:42→22:14)
[2017-09-06] MEDS: NICOTINE POLACRILEX 2 MG GUM BUC PRN (09:43)
[2017-09-06] MEDS: QUEtiapine FUMARATE 100 MG TABLET (FP) PO SCH (21:33)
[2017-09-06] MEDS: THIAMINE HCL 100 MG TABLET (FP) PO SCH (21:33)
[2017-09-06] MEDS: hydrOXYzine PAMOATE 50 MG CAPSULE (FP) PO PRN (21:35)
[2017-09-07] MEDS: METHADONE HCL 40 MG DISPERSABLE TABLET PO SCH (06:14)
[2017-09-07] MEDS: GABAPENTIN 100 MG CAPSULE (FP) PO SCH ×3 (06:14→21:15)
[2017-09-07] MEDS: NICOTINE 14 MG/24 HOURS TOPICAL PATCH TD SCH (09:49)
[2017-09-07] MEDS: BACITRACIN 0.9 GM PACKET TP SCH ×2 (09:49→21:14)
[2017-09-07] MEDS: PRENATAL VITAMINS W/ FOLIC ACID TABLET (FP) PO SCH (09:49)
[2017-09-07] MEDS: ACETAMINOPHEN 325 MG TABLET (FP) PO PRN (09:50)
[2017-09-07] MEDS: NICOTINE POLACRILEX 2 MG GUM BUC PRN ×2 (09:51→21:15)
[2017-09-07] MEDS: THIAMINE HCL 100 MG TABLET (FP) PO SCH (21:14)
[2017-09-07] MEDS: QUEtiapine FUMARATE 100 MG TABLET (FP) PO SCH (21:14)
[2017-09-07] MEDS: hydrOXYzine PAMOATE 50 MG CAPSULE (FP) PO PRN (21:16)
[2017-09-08] MEDS: METHADONE HCL 40 MG DISPERSABLE TABLET PO SCH (05:59)
[2017-09-08] MEDS: GABAPENTIN 100 MG CAPSULE (FP) PO SCH ×3 (05:59→21:36)
[2017-09-08] MEDS: NICOTINE 14 MG/24 HOURS TOPICAL PATCH TD SCH (09:38)
[2017-09-08] MEDS: PRENATAL VITAMINS W/ FOLIC ACID TABLET (FP) PO SCH (09:38)
[2017-09-08] MEDS: NICOTINE POLACRILEX 2 MG GUM BUC PRN ×3 (09:39→21:37)
[2017-09-08] MEDS: BACITRACIN 0.9 GM PACKET TP SCH ×2 (13:01→21:36)
[2017-09-08] MEDS: THIAMINE HCL 100 MG TABLET (FP) PO SCH (21:36)
[2017-09-08] MEDS: QUEtiapine FUMARATE 100 MG TABLET (FP) PO SCH (21:36)
[2017-09-08] MEDS: hydrOXYzine PAMOATE 50 MG CAPSULE (FP) PO PRN (21:37)
[2017-09-09] MEDS: METHADONE HCL 40 MG DISPERSABLE TABLET PO SCH (06:22)
[2017-09-09] MEDS: GABAPENTIN 100 MG CAPSULE (FP) PO SCH ×3 (06:22→21:11)
[2017-09-09] MEDS: BACITRACIN 0.9 GM PACKET TP SCH ×2 (09:44→21:11)
[2017-09-09] MEDS: NICOTINE 14 MG/24 HOURS TOPICAL PATCH TD SCH (09:44)
[2017-09-09] MEDS: PRENATAL VITAMINS W/ FOLIC ACID TABLET (FP) PO SCH (09:44)
[2017-09-09] MEDS: NICOTINE POLACRILEX 2 MG GUM BUC PRN (09:45)
[2017-09-09] MEDS: THIAMINE HCL 100 MG TABLET (FP) PO SCH (21:11)
[2017-09-09] MEDS: hydrOXYzine PAMOATE 50 MG CAPSULE (FP) PO PRN (21:12)
[2017-09-09] MEDS: QUEtiapine FUMARATE 100 MG TABLET (FP) PO SCH (21:12)
[2017-09-10] MEDS: METHADONE HCL 40 MG DISPERSABLE TABLET PO SCH (06:28)
[2017-09-10] MEDS: GABAPENTIN 100 MG CAPSULE (FP) PO SCH ×3 (06:28→21:08)
[2017-09-10] MEDS: NICOTINE 14 MG/24 HOURS TOPICAL PATCH TD SCH (09:44)
[2017-09-10] MEDS: BACITRACIN 0.9 GM PACKET TP SCH ×2 (09:44→21:08)
[2017-09-10] MEDS: PRENATAL VITAMINS W/ FOLIC ACID TABLET (FP) PO SCH (09:44)
[2017-09-10] MEDS: NICOTINE POLACRILEX 2 MG GUM BUC PRN ×2 (09:44→14:47)
[2017-09-10] MEDS: QUEtiapine FUMARATE 100 MG TABLET (FP) PO SCH (21:08)
[2017-09-10] MEDS: THIAMINE HCL 100 MG TABLET (FP) PO SCH (21:08)
[2017-09-10] MEDS: hydrOXYzine PAMOATE 50 MG CAPSULE (FP) PO PRN (21:08)
[2017-09-11] MEDS: GABAPENTIN 100 MG CAPSULE (FP) PO SCH ×3 (06:26→21:32)
[2017-09-11] MEDS: METHADONE HCL 40 MG DISPERSABLE TABLET PO SCH (06:26)
[2017-09-11] MEDS: PRENATAL VITAMINS W/ FOLIC ACID TABLET (FP) PO SCH (09:39)
[2017-09-11] MEDS: BACITRACIN 0.9 GM PACKET TP SCH ×2 (09:39→21:31)
[2017-09-11] MEDS: NICOTINE 14 MG/24 HOURS TOPICAL PATCH TD SCH (09:39)
[2017-09-11] MEDS: NICOTINE POLACRILEX 2 MG GUM BUC PRN (09:40)
--- NOTE | 2017-09-11 16:13 | PN ---
S Progress Note Note: pt wants tinactin cream for his itchy feet; tinactin cream ordered. would also want his methadone decreased however encouraged to speak to the chief of medicine tomorrow.
[2017-09-11] MEDS: THIAMINE HCL 100 MG TABLET (FP) PO SCH (21:32)
[2017-09-11] MEDS: QUEtiapine FUMARATE 100 MG TABLET (FP) PO SCH (21:32)
[2017-09-11] MEDS: hydrOXYzine PAMOATE 50 MG CAPSULE (FP) PO PRN (21:32)
[2017-09-11] MEDS: TOLNAFTATE 1% CREAM 15 GM TUBE TP SCH (22:14)
[2017-09-12] MEDS: METHADONE HCL 40 MG DISPERSABLE TABLET PO SCH (06:32)
[2017-09-12] MEDS: GABAPENTIN 100 MG CAPSULE (FP) PO SCH ×3 (06:32→21:04)
[2017-09-12] MEDS: PRENATAL VITAMINS W/ FOLIC ACID TABLET (FP) PO SCH (09:39)
[2017-09-12] MEDS: BACITRACIN 0.9 GM PACKET TP SCH ×2 (09:39→21:04)
[2017-09-12] MEDS: NICOTINE POLACRILEX 2 MG GUM BUC PRN ×3 (09:41→21:06)
[2017-09-12] MEDS: NICOTINE 14 MG/24 HOURS TOPICAL PATCH TD SCH (09:41)
[2017-09-12] MEDS: TOLNAFTATE 1% CREAM 15 GM TUBE TP SCH ×2 (09:41→21:07)
[2017-09-12] MEDS: QUEtiapine FUMARATE 100 MG TABLET (FP) PO SCH (21:04)
[2017-09-12] MEDS: THIAMINE HCL 100 MG TABLET (FP) PO SCH (21:05)
[2017-09-12] MEDS: hydrOXYzine PAMOATE 50 MG CAPSULE (FP) PO PRN (21:06)
[2017-09-13] MEDS: METHADONE HCL 40 MG DISPERSABLE TABLET PO SCH (06:15)
[2017-09-13] MEDS: GABAPENTIN 100 MG CAPSULE (FP) PO SCH ×2 (06:15→15:10)
[2017-09-13] MEDS: BACITRACIN 0.9 GM PACKET TP SCH ×2 (09:31→21:16)
[2017-09-13] MEDS: PRENATAL VITAMINS W/ FOLIC ACID TABLET (FP) PO SCH (09:31)
[2017-09-13] MEDS: NICOTINE 14 MG/24 HOURS TOPICAL PATCH TD SCH (09:31)
[2017-09-13] MEDS: TOLNAFTATE 1% CREAM 15 GM TUBE TP SCH ×2 (09:31→22:26)
[2017-09-13] MEDS: NICOTINE POLACRILEX 2 MG GUM BUC PRN ×2 (15:11→21:17)
[2017-09-13] MEDS: GABAPENTIN 300 MG CAPSULE (FP) PO SCH (21:16)
[2017-09-13] MEDS: hydrOXYzine PAMOATE 50 MG CAPSULE (FP) PO PRN (21:16)
[2017-09-13] MEDS: QUEtiapine FUMARATE 100 MG TABLET (FP) PO SCH (21:16)
[2017-09-13] MEDS: NAPROXEN 500 MG TABLET (FP) PO SCH (21:16)
[2017-09-13] MEDS: THIAMINE HCL 100 MG TABLET (FP) PO SCH (21:16)
[2017-09-14] MEDS: GABAPENTIN 300 MG CAPSULE (FP) PO SCH ×3 (06:21→21:40)
[2017-09-14] MEDS: METHADONE HCL 40 MG DISPERSABLE TABLET PO SCH (06:21)
[2017-09-14] MEDS: BACITRACIN 0.9 GM PACKET TP SCH ×2 (09:39→21:40)
[2017-09-14] MEDS: PRENATAL VITAMINS W/ FOLIC ACID TABLET (FP) PO SCH (09:39)
[2017-09-14] MEDS: TOLNAFTATE 1% CREAM 15 GM TUBE TP SCH ×2 (09:39→21:40)
[2017-09-14] MEDS: NICOTINE 14 MG/24 HOURS TOPICAL PATCH TD SCH (09:39)
[2017-09-14] MEDS: NAPROXEN 500 MG TABLET (FP) PO SCH ×2 (09:39→21:40)
[2017-09-14] MEDS: NICOTINE POLACRILEX 2 MG GUM BUC PRN ×2 (09:40→21:42)
[2017-09-14] MEDS: PANTOPRAZOLE 40 MG TABLET (FP) PO SCH (10:23)
[2017-09-14] MEDS: QUEtiapine FUMARATE 100 MG TABLET (FP) PO SCH (21:40)
[2017-09-14] MEDS: hydrOXYzine PAMOATE 50 MG CAPSULE (FP) PO PRN (21:41)
[2017-09-14] MEDS: THIAMINE HCL 100 MG TABLET (FP) PO SCH (21:41)
[2017-09-15] MEDS: GABAPENTIN 300 MG CAPSULE (FP) PO SCH ×3 (06:32→21:20)
[2017-09-15] MEDS: METHADONE HCL 40 MG DISPERSABLE TABLET PO SCH (06:32)
[2017-09-15] MEDS: PRENATAL VITAMINS W/ FOLIC ACID TABLET (FP) PO SCH (09:41)
[2017-09-15] MEDS: PANTOPRAZOLE 40 MG TABLET (FP) PO SCH (09:41)
[2017-09-15] MEDS: NAPROXEN 500 MG TABLET (FP) PO SCH ×2 (09:41→21:21)
[2017-09-15] MEDS: NICOTINE POLACRILEX 2 MG GUM BUC PRN ×3 (09:42→21:21)
[2017-09-15] MEDS: BACITRACIN 0.9 GM PACKET TP SCH ×2 (09:42→21:20)
[2017-09-15] MEDS: NICOTINE 14 MG/24 HOURS TOPICAL PATCH TD SCH (09:42)
[2017-09-15] MEDS: TOLNAFTATE 1% CREAM 15 GM TUBE TP SCH ×2 (10:36→21:21)
--- NOTE | 2017-09-15 15:56 | PN ---
S Progress Note (SOAP) Subjective: patient c/o of increased pain and swelling left foot after tripping over it several days ago prior to admission Objective: 09/15/17 16:37 Vital Signs - 24 hr 09/15/17 09/15/17 09/15/17 00:30 03:30 06:38 Temperature 97.3 F L Pulse Rate 54 L Respiratory 18 18 18 Rate Blood Pressure 109/68 labs reviewd swollen left foot, bruise around big toe, bony tenderness Assessment: 09/15/17 16:38 r/o foot fx xray, naprosyn for pain
[2017-09-15] MEDS: QUEtiapine FUMARATE 100 MG TABLET (FP) PO SCH (21:20)
[2017-09-15] MEDS: THIAMINE HCL 100 MG TABLET (FP) PO SCH (21:22)
[2017-09-16] MEDS: METHADONE HCL 40 MG DISPERSABLE TABLET PO SCH (06:44)
[2017-09-16] MEDS: GABAPENTIN 300 MG CAPSULE (FP) PO SCH ×3 (06:45→21:22)
[2017-09-16] MEDS ORDERED: PT OWN MED DRAWER 7, Y5N ONE ×2 (08:42→19:16)
[2017-09-16] MEDS: PANTOPRAZOLE 40 MG TABLET (FP) PO SCH (09:37)
[2017-09-16] MEDS: NAPROXEN 500 MG TABLET (FP) PO SCH ×2 (09:37→21:22)
[2017-09-16] MEDS: TOLNAFTATE 1% CREAM 15 GM TUBE TP SCH ×2 (09:37→21:23)
[2017-09-16] MEDS: PRENATAL VITAMINS W/ FOLIC ACID TABLET (FP) PO SCH (09:37)
[2017-09-16] MEDS: BACITRACIN 0.9 GM PACKET TP SCH ×2 (09:37→21:23)
[2017-09-16] MEDS: NICOTINE 14 MG/24 HOURS TOPICAL PATCH TD SCH (09:38)
[2017-09-16] MEDS: NICOTINE POLACRILEX 2 MG GUM BUC PRN (09:39)
[2017-09-16] MEDS: THIAMINE HCL 100 MG TABLET (FP) PO SCH (21:22)
[2017-09-16] MEDS: QUEtiapine FUMARATE 100 MG TABLET (FP) PO SCH (21:22)
[2017-09-16] MEDS: hydrOXYzine PAMOATE 50 MG CAPSULE (FP) PO PRN (21:24)
[2017-09-17] MEDS: METHADONE HCL 40 MG DISPERSABLE TABLET PO SCH (06:48)
[2017-09-17] MEDS: GABAPENTIN 300 MG CAPSULE (FP) PO SCH ×3 (06:48→21:31)
[2017-09-17] MEDS ORDERED: PT OWN MED DRAWER 7, Y5N ONE ×2 (08:29→21:33)
[2017-09-17] MEDS: PRENATAL VITAMINS W/ FOLIC ACID TABLET (FP) PO SCH (09:21)
[2017-09-17] MEDS: BACITRACIN 0.9 GM PACKET TP SCH ×2 (09:21→21:31)
[2017-09-17] MEDS: PANTOPRAZOLE 40 MG TABLET (FP) PO SCH (09:21)
[2017-09-17] MEDS: NAPROXEN 500 MG TABLET (FP) PO SCH ×2 (09:21→21:31)
[2017-09-17] MEDS: NICOTINE POLACRILEX 2 MG GUM BUC PRN ×3 (09:22→21:34)
[2017-09-17] MEDS: TOLNAFTATE 1% CREAM 15 GM TUBE TP SCH ×2 (09:22→21:33)
[2017-09-17] MEDS: NICOTINE 14 MG/24 HOURS TOPICAL PATCH TD SCH (09:22)
[2017-09-17] MEDS: THIAMINE HCL 100 MG TABLET (FP) PO SCH (21:31)
[2017-09-17] MEDS: QUEtiapine FUMARATE 100 MG TABLET (FP) PO SCH (21:31)
[2017-09-17] MEDS: hydrOXYzine PAMOATE 50 MG CAPSULE (FP) PO PRN (21:33)
[2017-09-18] MEDS: METHADONE HCL 40 MG DISPERSABLE TABLET PO SCH (06:57)
[2017-09-18] MEDS: GABAPENTIN 300 MG CAPSULE (FP) PO SCH ×3 (06:57→21:24)
[2017-09-18] MEDS: NAPROXEN 500 MG TABLET (FP) PO SCH ×2 (09:37→21:24)
[2017-09-18] MEDS: PANTOPRAZOLE 40 MG TABLET (FP) PO SCH (09:37)
[2017-09-18] MEDS: BACITRACIN 0.9 GM PACKET TP SCH ×2 (09:37→21:24)
[2017-09-18] MEDS: PRENATAL VITAMINS W/ FOLIC ACID TABLET (FP) PO SCH (09:39)
[2017-09-18] MEDS: NICOTINE 14 MG/24 HOURS TOPICAL PATCH TD SCH (09:39)
[2017-09-18] MEDS: TOLNAFTATE 1% CREAM 15 GM TUBE TP SCH ×2 (09:40→21:55)
[2017-09-18] MEDS: NICOTINE POLACRILEX 2 MG GUM BUC PRN ×3 (09:40→21:24)
[2017-09-18] MEDS: hydrOXYzine PAMOATE 50 MG CAPSULE (FP) PO PRN (21:24)
[2017-09-18] MEDS: THIAMINE HCL 100 MG TABLET (FP) PO SCH (21:24)
[2017-09-18] MEDS: QUEtiapine FUMARATE 100 MG TABLET (FP) PO SCH (21:24)
[2017-09-19] MEDS: METHADONE HCL 40 MG DISPERSABLE TABLET PO SCH (06:25)
[2017-09-19] MEDS: GABAPENTIN 300 MG CAPSULE (FP) PO SCH ×3 (06:25→21:16)
[2017-09-19] MEDS: BACITRACIN 0.9 GM PACKET TP SCH ×2 (09:43→21:15)
[2017-09-19] MEDS: NAPROXEN 500 MG TABLET (FP) PO SCH ×2 (09:43→21:16)
[2017-09-19] MEDS: PRENATAL VITAMINS W/ FOLIC ACID TABLET (FP) PO SCH (09:43)
[2017-09-19] MEDS: PANTOPRAZOLE 40 MG TABLET (FP) PO SCH (09:43)
[2017-09-19] MEDS: NICOTINE 14 MG/24 HOURS TOPICAL PATCH TD SCH (09:44)
[2017-09-19] MEDS: TOLNAFTATE 1% CREAM 15 GM TUBE TP SCH ×2 (09:44→21:17)
[2017-09-19] MEDS: NICOTINE POLACRILEX 2 MG GUM BUC PRN ×2 (09:44→13:25)
--- NOTE | 2017-09-19 13:32 | PN ---
[facility] Progress Note (SOAP) Subjective: revewied xray with patietn - nofracture seen Objective: 09/19/17 13:31 Vital Signs - 24 hr 09/19/17 09/19/17 09/19/17 00:30 03:30 06:38 Temperature 98.3 F Pulse Rate 64 Respiratory 18 18 18 Rate Blood Pressure 112/73 labs reviewed, xray reviewed, foot less swollen, patient is elevating foot and wearing slippers Assessment: 09/19/17 13:32 elevate and pain relief, if noimprovement when discharged go to pcp for further studies,patietn aware of xray results and recommendations
[2017-09-19] MEDS: THIAMINE HCL 100 MG TABLET (FP) PO SCH (21:15)
[2017-09-19] MEDS: hydrOXYzine PAMOATE 50 MG CAPSULE (FP) PO PRN (21:16)
[2017-09-19] MEDS: QUEtiapine FUMARATE 100 MG TABLET (FP) PO SCH (21:16)
[2017-09-20] MEDS: GABAPENTIN 300 MG CAPSULE (FP) PO SCH ×3 (06:41→21:06)
[2017-09-20] MEDS: METHADONE HCL 40 MG DISPERSABLE TABLET PO SCH (06:41)
[2017-09-20] MEDS: NICOTINE POLACRILEX 2 MG GUM BUC PRN ×3 (06:43→13:56)
[2017-09-20] MEDS: PRENATAL VITAMINS W/ FOLIC ACID TABLET (FP) PO SCH (09:33)
[2017-09-20] MEDS: PANTOPRAZOLE 40 MG TABLET (FP) PO SCH (09:33)
[2017-09-20] MEDS: BACITRACIN 0.9 GM PACKET TP SCH ×2 (09:33→21:06)
[2017-09-20] MEDS: NAPROXEN 500 MG TABLET (FP) PO SCH ×2 (09:33→21:06)
[2017-09-20] MEDS: TOLNAFTATE 1% CREAM 15 GM TUBE TP SCH ×2 (09:34→21:06)
[2017-09-20] MEDS: NICOTINE 14 MG/24 HOURS TOPICAL PATCH TD SCH (10:41)
--- NOTE | 2017-09-20 12:16 | PN ---
S Progress Note (SOAP) Subjective: continued pain and swelling both feet adn ankels bilaterally now Objective: 09/20/17 12:15 Vital Signs - 24 hr 09/20/17 09/20/17 09/20/17 00:30 03:30 06:44 Temperature 98.3 F Pulse Rate 61 Respiratory 18 18 18 Rate Blood Pressure 112/72 labs revewied on admission will repeat, does seem to have increased pain and swelling both ankles and feet s/p trauma prior to admissionsome redness but does not appear infected Assessment: 09/20/17 12:16 r/o infection fx ankles/feet xrays r adn l ankle and feet, repeat labs check iv , hep c
[2017-09-20] MEDS: hydrOXYzine PAMOATE 50 MG CAPSULE (FP) PO PRN (21:06)
[2017-09-20] MEDS: QUEtiapine FUMARATE 100 MG TABLET (FP) PO SCH (21:06)
[2017-09-20] MEDS: THIAMINE HCL 100 MG TABLET (FP) PO SCH (21:06)
[2017-09-21] MEDS: METHADONE HCL 40 MG DISPERSABLE TABLET PO SCH (06:33)
[2017-09-21] MEDS: GABAPENTIN 300 MG CAPSULE (FP) PO SCH ×3 (06:33→21:35)
[2017-09-21] MEDS: NICOTINE POLACRILEX 2 MG GUM BUC PRN ×4 (06:35→21:37)
[2017-09-21] MEDS: PANTOPRAZOLE 40 MG TABLET (FP) PO SCH (09:37)
[2017-09-21] MEDS: NAPROXEN 500 MG TABLET (FP) PO SCH ×2 (09:37→21:35)
[2017-09-21] MEDS: PRENATAL VITAMINS W/ FOLIC ACID TABLET (FP) PO SCH (09:37)
[2017-09-21] MEDS: BACITRACIN 0.9 GM PACKET TP SCH ×2 (09:37→21:35)
[2017-09-21] MEDS: TOLNAFTATE 1% CREAM 15 GM TUBE TP SCH ×2 (09:37→22:13)
[2017-09-21] MEDS: NICOTINE 14 MG/24 HOURS TOPICAL PATCH TD SCH (09:37)
[2017-09-21 10:22] LABS: CHLORIDE 104 mmol/L (98-107); POTASSIUM 4.2 mmol/L (3.5-5.1); SODIUM 139 mmol/L (136-145)
[2017-09-21 10:28] LABS: BASO % 0.3 % (0-2.0); EOS % 3.2 % (0-4.5); HEMATOCRIT 43.7 % (35.4-49); HEMOGLOBIN 14.8 GM/dL (11.7-16.9); LYMPH % 41.3 % (8-40); MCH 32.6 pg (25.7-33.7); MCHC 33.9 g/dl (32.0-35.9); MEAN CELL VOLUME 96.3 fl (80-96); MEAN PLT VOLUME 8.8 fl (7.5-11.1); MONO % 9.9 % (3.8-10.2); NEUT % 45.3 % (42.8-82.8); PLATELET COUNT 113 K/MM3 (134-434); RBC 4.54 M/mm3 (4.00-5.60); RDW 12.8 % (11.9-15.9)
[2017-09-21 10:30] LABS: ALBUMIN 3.3 g/dl (3.4-5.0); ALK PHOS 89 U/L (45-117); ANION GAP 5 (8-16); BILIRUBIN,TOTAL 0.7 mg/dL (0.2-1.0); BLOOD UREA NITROGEN 17 mg/dL (7-18); CALCIUM 8.5 mg/dL (8.5-10.1); CO2 30 mmol/L (21-32); CREATININE 0.7 mg/dL (0.7-1.3); GLUCOSE,RANDOM 111 mg/dL (74-106); SGOT/AST 117 U/L (15-37); SGPT/ALT 171 U/L (12-78); TOT PROT 6.4 g/dl (6.4-8.2)
[2017-09-21] MEDS: THIAMINE HCL 100 MG TABLET (FP) PO SCH (21:35)
[2017-09-21] MEDS: hydrOXYzine PAMOATE 50 MG CAPSULE (FP) PO PRN (21:36)
[2017-09-21] MEDS: QUEtiapine FUMARATE 100 MG TABLET (FP) PO SCH (21:36)
[2017-09-22] MEDS: GABAPENTIN 300 MG CAPSULE (FP) PO SCH ×3 (07:07→21:26)
[2017-09-22] MEDS: METHADONE HCL 40 MG DISPERSABLE TABLET PO SCH (07:07)
[2017-09-22] MEDS: NICOTINE POLACRILEX 2 MG GUM BUC PRN ×2 (08:24→13:12)
[2017-09-22] MEDS: BACITRACIN 0.9 GM PACKET TP SCH ×2 (10:00→21:26)
[2017-09-22] MEDS: PANTOPRAZOLE 40 MG TABLET (FP) PO SCH (10:00)
[2017-09-22] MEDS: NAPROXEN 500 MG TABLET (FP) PO SCH ×2 (10:00→21:26)
[2017-09-22] MEDS: NICOTINE 14 MG/24 HOURS TOPICAL PATCH TD SCH (10:00)
[2017-09-22] MEDS: TOLNAFTATE 1% CREAM 15 GM TUBE TP SCH ×2 (10:00→21:27)
[2017-09-22] MEDS: PRENATAL VITAMINS W/ FOLIC ACID TABLET (FP) PO SCH (10:00)
--- NOTE | 2017-09-22 10:37 | PN ---
S Progress Note (SOAP) Subjective: reviewed xrays old fx left tibia healed, swelling not discussed labwork, hep c is +ve awaiting results viral load, hiv + ve waitign results confirmatory testing, patiet was aware of dx has not had any treatment for either infectioned bialerally no acute process Objective: 09/22/17 10:35 Vital Signs - 24 hr 09/22/17 09/22/17 09/22/17 00:30 03:30 06:53 Temperature 98.3 F Pulse Rate 64 Respiratory 18 18 18 Rate Blood Pressure 110/66 Laboratory Tests 09/20/17 09/20/17 09/20/17 07:00 07:00 08:06 WBC RBC Hgb Hct MCV MCH MCHC RDW Plt Count MPV Neutrophils % Lymphocytes % Monocytes % Eosinophils % Basophils % Sodium Potassium Chloride Carbon Dioxide Anion Gap BUN Creatinine Creat Clearance w eGFR Random Glucose Calcium Total Bilirubin AST ALT Alkaline Phosphatase Total Protein Albumin Hepatitis C Antibody >11.0 H HIV 1&2 Ag/Ab, 4th Gen Cancelled Cancelled HIV 1&2 Antibody Screen HIV P24 Antigen 09/21/17 09/21/17 07:00 07:00 WBC 6.0 RBC 4.54 Hgb 14.8 Hct 43.7 MCV 96.3 H MCH 32.6 MCHC 33.9 RDW 12.8 Plt Count 113 L MPV 8.8 Neutrophils % 45.3 Lymphocytes % 41.3 H Monocytes % 9.9 Eosinophils % 3.2 Basophils % 0.3 Sodium 139 Potassium 4.2 Chloride 104 Carbon Dioxide 30 Anion Gap 5 L BUN 17 D Creatinine 0.7 Creat Clearance w eGFR > 60 Random Glucose 111 H D Calcium 8.5 Total Bilirubin 0.7 D AST 117 H D ALT 171 H D Alkaline Phosphatase 89 Total Protein 6.4 Albumin 3.3 L Hepatitis C Antibody HIV 1&2 Ag/Ab, 4th Gen HIV 1&2 Antibody Screen HIV P24 Antigen no h/o IDU, belieed infected from [facility] in [facility] Assessment: 09/22/17 10:36 ankle swelling pain - chroniic , will follow up odiatrist for bunions and orhtopedics when discharged, will revivewelabwork next week for further counseling re rx HIV and Hep c when results back
[2017-09-22] MEDS: QUEtiapine FUMARATE 100 MG TABLET (FP) PO SCH (21:26)
[2017-09-22] MEDS: THIAMINE HCL 100 MG TABLET (FP) PO SCH (21:26)
[2017-09-22] MEDS: hydrOXYzine PAMOATE 50 MG CAPSULE (FP) PO PRN (21:27)
[2017-09-23] MEDS: GABAPENTIN 300 MG CAPSULE (FP) PO SCH ×3 (07:01→21:08)
[2017-09-23] MEDS: METHADONE HCL 40 MG DISPERSABLE TABLET PO SCH (07:01)
[2017-09-23] MEDS: NICOTINE POLACRILEX 2 MG GUM BUC PRN ×3 (07:03→21:08)
[2017-09-23] MEDS: PANTOPRAZOLE 40 MG TABLET (FP) PO SCH (09:30)
[2017-09-23] MEDS: NAPROXEN 500 MG TABLET (FP) PO SCH ×2 (09:30→21:08)
[2017-09-23] MEDS: BACITRACIN 0.9 GM PACKET TP SCH ×2 (09:30→21:08)
[2017-09-23] MEDS: PRENATAL VITAMINS W/ FOLIC ACID TABLET (FP) PO SCH (09:30)
[2017-09-23] MEDS: TOLNAFTATE 1% CREAM 15 GM TUBE TP SCH ×2 (09:31→21:09)
[2017-09-23] MEDS: NICOTINE 14 MG/24 HOURS TOPICAL PATCH TD SCH (09:31)
[2017-09-23] MEDS: THIAMINE HCL 100 MG TABLET (FP) PO SCH (21:08)
[2017-09-23] MEDS: QUEtiapine FUMARATE 100 MG TABLET (FP) PO SCH (21:08)
[2017-09-23] MEDS: hydrOXYzine PAMOATE 50 MG CAPSULE (FP) PO PRN (21:08)
[2017-09-24] MEDS: METHADONE HCL 40 MG DISPERSABLE TABLET PO SCH (06:31)
[2017-09-24] MEDS: NICOTINE POLACRILEX 2 MG GUM BUC PRN ×2 (06:31→09:36)
[2017-09-24] MEDS: GABAPENTIN 300 MG CAPSULE (FP) PO SCH ×3 (06:31→21:56)
[2017-09-24] MEDS: PRENATAL VITAMINS W/ FOLIC ACID TABLET (FP) PO SCH (09:35)
[2017-09-24] MEDS: PANTOPRAZOLE 40 MG TABLET (FP) PO SCH (09:35)
[2017-09-24] MEDS: BACITRACIN 0.9 GM PACKET TP SCH ×2 (09:35→21:56)
[2017-09-24] MEDS: NICOTINE 14 MG/24 HOURS TOPICAL PATCH TD SCH (09:35)
[2017-09-24] MEDS: NAPROXEN 500 MG TABLET (FP) PO SCH ×2 (09:35→21:56)
[2017-09-24] MEDS: TOLNAFTATE 1% CREAM 15 GM TUBE TP SCH ×2 (09:35→21:56)
[2017-09-24] MEDS ORDERED: PT OWN MED DRAWER 7, Y5N ONE (19:04)
[2017-09-24] MEDS: QUEtiapine FUMARATE 100 MG TABLET (FP) PO SCH (21:56)
[2017-09-24] MEDS: THIAMINE HCL 100 MG TABLET (FP) PO SCH (21:56)
[2017-09-24] MEDS: hydrOXYzine PAMOATE 50 MG CAPSULE (FP) PO PRN (21:58)
[2017-09-25] MEDS: METHADONE HCL 40 MG DISPERSABLE TABLET PO SCH (06:18)
[2017-09-25] MEDS: GABAPENTIN 300 MG CAPSULE (FP) PO SCH ×3 (06:18→21:11)
[2017-09-25] MEDS: NICOTINE POLACRILEX 2 MG GUM BUC PRN ×4 (06:20→21:11)
[2017-09-25] MEDS: MENTHOL/PHENOL 1 EACH UD MM PRN (07:26)
[2017-09-25] MEDS: BACITRACIN 0.9 GM PACKET TP SCH ×2 (09:39→21:11)
[2017-09-25] MEDS: NAPROXEN 500 MG TABLET (FP) PO SCH ×2 (09:39→21:11)
[2017-09-25] MEDS: PRENATAL VITAMINS W/ FOLIC ACID TABLET (FP) PO SCH (09:39)
[2017-09-25] MEDS: PANTOPRAZOLE 40 MG TABLET (FP) PO SCH (09:39)
[2017-09-25] MEDS: TOLNAFTATE 1% CREAM 15 GM TUBE TP SCH ×2 (09:41→21:12)
[2017-09-25] MEDS: NICOTINE 14 MG/24 HOURS TOPICAL PATCH TD SCH (09:41)
[2017-09-25] MEDS: QUEtiapine FUMARATE 100 MG TABLET (FP) PO SCH (21:11)
[2017-09-25] MEDS: THIAMINE HCL 100 MG TABLET (FP) PO SCH (21:11)
[2017-09-25] MEDS: hydrOXYzine PAMOATE 50 MG CAPSULE (FP) PO PRN (21:11)
--- NOTE | 2017-09-25 23:58 | PN ---
[facility] Progress Note Note: HIV test results were discussed with patient. As per patient he has had similar results in the past and is linked to HIV specialist . Reports will follow up upon discharge from rehab.
[2017-09-26] MEDS: GABAPENTIN 300 MG CAPSULE (FP) PO SCH ×3 (06:31→21:33)
[2017-09-26] MEDS: METHADONE HCL 40 MG DISPERSABLE TABLET PO SCH (06:31)
[2017-09-26] MEDS: NICOTINE POLACRILEX 2 MG GUM BUC PRN ×3 (06:33→14:14)
[2017-09-26] MEDS ORDERED: PT OWN MED DRAWER 7, Y5N ONE (08:42)
[2017-09-26] MEDS: PRENATAL VITAMINS W/ FOLIC ACID TABLET (FP) PO SCH (09:35)
[2017-09-26] MEDS: BACITRACIN 0.9 GM PACKET TP SCH ×2 (09:35→21:33)
[2017-09-26] MEDS: PANTOPRAZOLE 40 MG TABLET (FP) PO SCH (09:35)
[2017-09-26] MEDS: TOLNAFTATE 1% CREAM 15 GM TUBE TP SCH ×2 (09:35→21:34)
[2017-09-26] MEDS: NAPROXEN 500 MG TABLET (FP) PO SCH ×2 (09:35→21:33)
[2017-09-26] MEDS: MENTHOL/PHENOL 1 EACH UD MM PRN ×3 (09:38→21:34)
[2017-09-26] MEDS: NICOTINE 14 MG/24 HOURS TOPICAL PATCH TD SCH (10:26)
[2017-09-26] MEDS: QUEtiapine FUMARATE 100 MG TABLET (FP) PO SCH (21:33)
[2017-09-26] MEDS: THIAMINE HCL 100 MG TABLET (FP) PO SCH (21:33)
[2017-09-26] MEDS: hydrOXYzine PAMOATE 50 MG CAPSULE (FP) PO PRN (21:35)
[2017-09-27] MEDS ORDERED: METHADONE HCL 40 MG DISPERSABLE TABLET PO SCH (06:00)
[2017-09-27] MEDS: GABAPENTIN 300 MG CAPSULE (FP) PO SCH (06:37)
[2017-09-27 06:46] VITALS: BP 109/79; PULSE 70; TEMP 98
--- NOTE | 2017-09-27 08:33 | PN ---
Psychiatric Progress Note Vital Signs: Vital Signs Period Temp Pulse Resp BP Sys/Arreola Pulse Ox Last 24 Hr 98.0 F 70 18-18 109/79 Date of Session: 09/27/17 Chief Complaint:: "Discharge" HPI: Pt. admitted to [facility] for Heroin dependence. ROS: Unremarkable. Current Medications: Active Medications Generic Name Dose Route Start Last Admin Trade Name Freq PRN Reason Stop Dose Admin Al Hydroxide/Mg Hydroxide 30 ml 08/28/17 15:48 09/11/17 07:16 Mylanta Oral Suspension - PO 30 ml Q6H PRN Administration DYSPEPSIA Albuterol Sulfate 2 puff 08/28/17 16:47 Ventolin Hfa Inhaler - IH Q4H PRN ASTHMA Bacitracin 0.9 gm 08/28/17 22:00 09/26/17 21:33 Bacitracin - TP 0.9 gm BID OLIVA Administration Eucalyptus/Menthol/Phenol/Sorbitol 1 each 08/28/17 15:48 09/26/17 21:34 Cepastat Lozenge - MM 1 each Q4H PRN Administration SORE THROAT Gabapentin 300 mg 09/13/17 16:15 09/27/17 06:37 Neurontin - PO 300 mg TID OLIVA Administration Guaifenesin 10 ml 08/28/17 15:48 Robitussin Dm - PO Q6H PRN COUGH Hydroxyzine Pamoate 50 mg 08/28/17 15:48 09/26/17 21:35 Vistaril - PO 50 mg Q4H PRN Administration AGITATION Loperamide HCl 4 mg 08/28/17 15:48 08/30/17 23:31 Imodium - PO 4 mg Q6H PRN Administration DIARRHEA Magnesium Citrate 300 ml 08/28/17 15:48 Citroma - PO Q48H PRN CONSTIPATION Magnesium Hydroxide 30 ml 08/28/17 15:48 Milk Of Magnesia - PO DAILY PRN CONSTIPATION Methadone HCl 40 mg 09/27/17 06:00 09/27/17 06:37 Dolophine - PO 10/04/17 05:59 40 mg DAILY@0600 OLIVA Administration Naproxen 500 mg 09/13/17 22:00 09/26/17 21:33 Naprosyn - PO 500 mg BID OLIVA Administration Nicotine 14 mg 08/28/17 16:00 09/26/17 10:26 Nicoderm Patch - TD Not Given DAILY OLIVA Nicotine Polacrilex 2 mg 08/28/17 15:48 09/26/17 14:14 Nicorette Gum - BUC 2 mg Q2H PRN Administration NICOTINE REPLACEMENT RX Pantoprazole Sodium 40 mg 09/14/17 10:00 09/26/17 09:35 Protonix - PO 40 mg DAILY OLIVA Administration Multivit/Folic Acid/Iron 1 tab 08/29/17 10:00 09/26/17 09:35 Vitamins (Sjr) - PO 1 tab DAILY OLIVA Administration Pseudoephedrine/Triprolidine 1 combo 08/28/17 15:48 Actifed - PO TID PRN NASAL CONGESTION Quetiapine Fumarate 100 mg 08/29/17 22:00 09/26/17 21:33 Seroquel - PO 100 mg HS OLIVA Administration Thiamine HCl 100 mg 08/28/17 22:00 09/26/17 21:33 Vitamin B1 - PO 100 mg HS OLIVA Administration Tolnaftate 1 applic 09/11/17 22:00 09/26/17 21:34 Tinactin 1% Cream - TP 1 applic BID OLIVA Administration Medication(s) Change(s): No. Current Side Effect: No Lab tests ordered: No Lab tests reviewed: Yes Provider note:: Patient completed the rehabilition program on 09/27/17. He has met his treatment goals and will continue to address his issues in outpatient treatment at [facility] treatment program in the [place], [place]. Pt is able to understand the consequences of his addiction and the need to make positive changes to his lifestyle in order to maintain abstinence. Pt. responded well to seroquel 100mg qhs. A script for 30 days was sent electronically to [facility]. Pt. is stable for discharge. Total face to face time:: 35 Mental Status Exam - Mental Status Exam Alert and Oriented to: Time, Place, Person Cognitive Function: Good Patient Appearance: Well Groomed Mood: Hopeful Affect: Appropriate Patient Behavior: Appropriate, Cooperative Speech Pattern: Clear, Appropriate Voice Loudness: Normal Thought Process: Intact Thought Disorder: Not Present Hallucinations: Denies Suicidal Ideation: Denies Homicidal Ideation: Denies Insight/Judgement: Good Sleep: Well Appetite: Good Muscle strength/Tone: Normal Gait/Station: Normal Psychiatric Treatment Plan - Problem List (1) Opioid dependence Current Visit: Yes (2) Opioid dependence on agonist therapy Current Visit: Yes (3) Cannabis dependence Current Visit: Yes (4) Sedative hypnotic or anxiolytic dependence Current Visit: Yes (5) Substance induced mood disorder Current Visit: Yes (6) Substance-induced sleep disorder Current Visit: Yes (7) Nicotine dependence Current Visit: Yes
[2017-09-27] MEDS: NAPROXEN 500 MG TABLET (FP) PO SCH (09:39)
[2017-09-27] MEDS: PRENATAL VITAMINS W/ FOLIC ACID TABLET (FP) PO SCH (09:39)
[2017-09-27] MEDS: BACITRACIN 0.9 GM PACKET TP SCH (09:39)
[2017-09-27] MEDS: PANTOPRAZOLE 40 MG TABLET (FP) PO SCH (09:39)
[2017-09-27] MEDS: TOLNAFTATE 1% CREAM 15 GM TUBE TP SCH (09:41)
== END 2017-09-27 09:55 | disposition home or self-care (01) | DRG 772 ==
LOC: YASAS 14:20 → Y3W 14:22
PROVIDERS: ADMIT Psychiatry & Neurology Psychiatry; ATTEND Psychiatry & Neurology Psychiatry
PROC: HZ42ZZZ Group Counseling for Substance Abuse Treatment, Cognitive-Behavioral (ICD-10-PCS; principal; 2017-08-28)
DX: F11.20 Opioid dependence, uncomplicated (principal); F13.20 Sedative, hypnotic or anxiolytic dependence, uncomplicated; F17.210 Nicotine dependence, cigarettes, uncomplicated; F19.24 Other psychoactive substance dependence with psychoactive substance-induced mood disorder; F19.282 Other psychoactive substance dependence with psychoactive substance-induced sleep disorder; B18.2 Chronic viral hepatitis C; Z21 Asymptomatic human immunodeficiency virus [HIV] infection status; F12.20 Cannabis dependence, uncomplicated
CPT/HCPCS: 36415; 73610-TC-LT-FY; 73610-TC-RT-FY; 73630-TC-LT; 73630-TC-RT-FY; 80053; 85025; 86803; 87389; 87522